=== PATIENT | male | born 1955 | race Caucasian/White ===

== ENCOUNTER 2020-08-10 08:28 | Observation (INO) | payer BC ==
[2020-08-03 15:08] LABS: BASOPHILS % (AUTO) 0.3 % (0-1); EOSINOPHILS % (AUTO) 0.8 % (0-6); LYMPHOCYTES # (AUTO) 0.7 X10'3 (1.1-4.8); LYMPHOCYTES % (AUTO) 12.7 % (21-51); MEAN CORPUSCULAR HEMOGLOBIN 31.7 PG (27.0-31.0); MEAN CORPUSCULAR HGB CONC 33.5 g/dL (33.0-36.5); MEAN CORPUSCULAR VOLUME 94.7 FL (78-98); MEAN PLATELET VOLUME 8.8 FL (7.4-10.4); MONOCYTES # (AUTO) 0.5 X10'3 (0-0.9); MONOCYTES % (AUTO) 8.3 % (2-12); NEUTROPHILS # (AUTO) 4.4 X10'3 (1.8-7.7); NEUTROPHILS % (AUTO) 77.9 % (42-75); PRE OP HEMATOCRIT 45.8 % (42.0-52.0); PRE OP HEMOGLOBIN 15.4 g/dL (14.0-17.9); PRE OP PLATELET COUNT 196 X10'3 (140-440); RED BLOOD COUNT 4.84 X10'6 (4.70-6.10); RED CELL DISTRIBUTION WIDTH 13.9 % (11.5-14.5)
[2020-08-03 15:17] LABS: ALBUMIN 4.2 G/DL (3.4-5.0); ALBUMIN/GLOBULIN RATIO 1.4 (1.1-1.5); ALKALINE PHOSPHATASE 85 IU/L (46-116); BLOOD UREA NITROGEN 23 MG/DL (7-18); BUN/CREATININE RATIO 27.1 (5.4-32.0); CALCIUM 8.9 MG/DL (8.5-10.1); CHLORIDE 103 MMOL/L (99-107); CREATININE 0.85 MG/DL (0.60-1.10); PRE OP ALT 34 U/L (30-65); PRE OP ANION GAP 8 (8-16); PRE OP AST 12 U/L (10-37); PRE OP BILIRUB, TOTAL 0.5 MG/DL (0.0-1.0); PRE OP GLUCOSE 125 MG/DL (70-104); PRE OP POTASSIUM 4.2 MMOL/L (3.4-5.1); PRE OP SODIUM 141 MMOL/L (135-145); TOTAL CARBON DIOXIDE 30.4 MMOL/L (24-32); TOTAL PROTEIN 7.2 G/DL (6.4-8.2); eGFR > 90 ML/MIN
[2020-08-10] VITALS (14 sets, daily range): BP systolic 114–152; BP diastolic 50–86
[~2020-08-10] VITALS: Ht 175.3 cm; Wt 75.0 kg
[~2020-08-10 08:28] MED LIST: ASPI-611 PO; CELE-85 PO; CYCL-1 PO; DILT-94 PO; DOCUMENT DATE & TIME OF BETA-BLOCKER PO ONE; EYE PROMISE RESTORE; FLO0.4C PO; FLUT16SP10 INH; HYDR25TA4 PO; METO-411 PO; MONT10TA97 PO; MULT-1085 PO; OMEP-50 PO; POLY1DRO2 OP; POTA5TAB2 PO; PRAV40TA3 PO; PSYL575P22 PO; TADA10TA14 PO; ceFAZolin 2gm in dextrose, iso 50 ML IV ONE; famotidine 20mg tablet PO ONE; ringers solution, lacted 1,000 ML IV SCH
[2020-08-10 09:54] LABS: PRE OP PARTIAL THROMB. TIME 25 SECONDS (22-32)
[2020-08-10] MEDS ORDERED: fentaNYL /PF 50mcg/ml 5ml ampule ONE (10:11)
[2020-08-10] MEDS ORDERED: midazolam 2 mg/2 ml injection ONE (10:11)
[2020-08-10] MEDS ORDERED: sevoflurane 250ml liquid IH ONE (10:34)
[2020-08-10] MEDS ORDERED: BUPIVAcaine/PF 2.5 mg/ml (0.25%) 30ml vial ONE (10:44)
[2020-08-10] MEDS ORDERED: rocuronium 10mg/ml inj IV ONE (12:57)
[2020-08-10] MEDS ORDERED: LIDOcaine 2% (20mg/ml) 5ml vial ONE (12:57)
[2020-08-10] MEDS ORDERED: dexamethasone sod phosphate 4mg/ml inj. ONE (12:57)
[2020-08-10] MEDS ORDERED: glycopyrrolate 0.2mg/ml inj ONE (12:57)
[2020-08-10] MEDS ORDERED: neostigmine methylsulfate 1 MG/ML 10ml vial ONE (12:57)
[2020-08-10] MEDS ORDERED: propofol inj 20 ML IV ONE (12:57)
[2020-08-10] MEDS ORDERED: ondansetron/PF 4mg/2ml inj ONE (12:57)
[2020-08-10] MEDS ORDERED: proCHLORperazine 10 MG/2 ml inj IV PRN (13:40)
[2020-08-10] MEDS ORDERED: morphine 4 MG/ML inj SYRINge IV PRN (13:40)
[2020-08-10] MEDS ORDERED: ringers solution, lacted 1,000 ML IV SCH (13:40)
[2020-08-10] MEDS ORDERED: meperidine/PF 25mg/ml syringe IV PRN ×2 (13:40)
[2020-08-10] MEDS ORDERED: ondansetron/PF 4mg/2ml inj IV PRN ×2 (13:40→14:20)
[2020-08-10] MEDS ORDERED: ePHEDrine 50MG/ML INJ. ONE (13:55)
[2020-08-10] MEDS ORDERED: acetaminophen 1,000mg/100ml IV 100 ML IV ONE (14:08)
[2020-08-10] MEDS ORDERED: oxybutynin 5mg tablet PO PRN (14:20)
[2020-08-10] MEDS ORDERED: meperidine/PF 25mg/ml syringe ONE (14:20)
[2020-08-10] MEDS ORDERED: HYDROcodone/acetaminophen 5mg/325mg tablet PO PRN (14:20)
[2020-08-10] MEDS ORDERED: acetaminophen 325mg tablet PO PRN (14:20)
--- NOTE | 2020-08-10 14:22 | NUR ---
Received from OR via BED, accompanied by Anesthesiologist DR MALDONADO and report given by Anesthesiologist. PT VERY DROWSY, NO S/S OF DISTRESS/DISCOMFORT. ABDOMEN W/5 LAP SITES W/BANDAIDS CDI, MAY TO BULB SX W/S/S DRAINAGE, INSERTION SITE COVERED W/SMALL [place] DRSPatricia'S CDI. RO CATHETER TO GRAVITY DRAINAGE W/SATISHDY/SHELBI URINE. Addendum: 08/10/20 at 1456 by Starr Garza RN Amended: Links added.
[2020-08-10] MEDS ORDERED: cyclobenzaprine 10mg tablet PO PRN (14:40)
[2020-08-10] MEDS: meperidine/PF 25mg/ml syringe IV PRN ×2 (14:57→15:12)
[2020-08-10] MEDS: morphine 2 MG/ML inj. syringe IV PRN ×2 (15:24→15:48)
--- NOTE | 2020-08-10 16:12 | NUR ---
Report called to receiving nurse. Transferred via BED, 1 GREEN DULLFE BAG AND 1 BAG OF SHOES SENT W/PT TO ROOM 345B, RECEIVING RN AT BEDSIDE TO RECEIVE PT, BLL, CALL LIGHT GIVEN, SIDE RAILS UP X 2, PT ORIENTED TO ROOM AND SAFETY. Special Issues communicated to receiving nurse. YES. Addendum: 08/10/20 at 1635 by Starr Garza RN Amended: Links added.
--- NOTE | 2020-08-10 16:23 | NUR ---
Patient to room 345B from recovery and arrived to room via bed with x2 staff. Patient resting comfortably at time of arrival. VSS, call light in reach, BLL.
[2020-08-10] MEDS: potassium cl 20mEq in 1/2 NS 1,000 ML IV SCH ×2 (18:00→22:20)
[2020-08-10] MEDS: HYDROmorphone 1 mg/ml syringe IV PRN ×2 (18:01→22:36)
--- NOTE | 2020-08-10 18:25 | NUR ---
Problems reprioritized. Patient report given, questions answered & plan of care reviewed with JEFFERY Evans.
--- NOTE | 2020-08-10 18:45 | NUR ---
I have received report from JEFFERY Guy and had the opportunity to ask questions and assume patient care.
[2020-08-10] MEDS: polyvinyl alcohol ophthalmic drops 15ml bottle EACHEYE SCH (20:10)
[2020-08-10] MEDS: HYDROcodone/acetaminophen 5mg/325mg tablet PO PRN (20:19)
--- NOTE | 2020-08-10 20:30 | NUR ---
Patients post op vitals did not record on the vital machine. The last one was due at 1999 and it was charted under the vital sign intervention.
[2020-08-10] MEDS ORDERED: montelukast 10mg tablet PO SCH (21:00)
[2020-08-10] MEDS ORDERED: diltiazem CD 120mg capsule (once-daily) PO SCH (21:00)
[2020-08-11] VITALS: BP 133/63
[2020-08-11] MEDS: HYDROcodone/acetaminophen 5mg/325mg tablet PO PRN ×3 (01:58→12:26)
[2020-08-11] MEDS: potassium cl 20mEq in 1/2 NS 1,000 ML IV SCH (01:59)
[2020-08-11 04:00] VITALS: BP 136/68
[2020-08-11] MEDS: HYDROmorphone 1 mg/ml syringe IV PRN (04:16)
[2020-08-11 05:38] LABS: BASOPHILS % (AUTO) 0.1 % (0-1); EOSINOPHILS % (AUTO) 0 % (0-6); HEMATOCRIT 40.5 % (42.0-52.0); HEMOGLOBIN 13.7 g/dl (14.0-17.9); LYMPHOCYTES # (AUTO) 0.4 X10'3 (1.1-4.8); LYMPHOCYTES % (AUTO) 3.5 % (21-51); MEAN CORPUSCULAR HEMOGLOBIN 31.9 PG (27.0-31.0); MEAN CORPUSCULAR HGB CONC 33.9 g/dL (33.0-36.5); MEAN CORPUSCULAR VOLUME 94.1 FL (78-98); MEAN PLATELET VOLUME 8.1 FL (7.4-10.4); MONOCYTES # (AUTO) 0.9 X10'3 (0-0.9); MONOCYTES % (AUTO) 8.2 % (2-12); NEUTROPHILS # (AUTO) 10.2 X10'3 (1.8-7.7); NEUTROPHILS % (AUTO) 88.2 % (42-75); PLATELET COUNT 202 X10'3 (140-440); RED CELL DISTRIBUTION WIDTH 13.7 % (11.5-14.5); WHITE BLOOD COUNT 11.5 X10'3 (4.5-11.0)
[2020-08-11 05:53] LABS: ALBUMIN 3.2 G/DL (3.4-5.0); ANION GAP 6 (8-16); BLOOD UREA NITROGEN 10 MG/DL (7-18); BUN/CREATININE RATIO 15.6 (5.4-32.0); CALCIUM 7.9 MG/DL (8.5-10.1); CHLORIDE 108 MMOL/L (99-107); CREATININE 0.64 MG/DL (0.60-1.10); GLUCOSE 133 MG/DL (70-104); SODIUM 142 MMOL/L (135-145); TOTAL CARBON DIOXIDE 28.2 MMOL/L (24-32); eGFR > 90 ML/MIN
[2020-08-11 07:00] VITALS: BP 130/59
[2020-08-11] MEDS ORDERED: pantoprazole 40mg Tablet.DR PO SCH (08:00)
[2020-08-11] MEDS ORDERED: fluticasone nasal spray 16GM bottle NS SCH (08:00)
[2020-08-11] MEDS ORDERED: HYDROchlorothiazide 25mg tablet PO SCH (08:00)
[2020-08-11] MEDS ORDERED: metoprolol succinate 25mg (24-HOUR) SR. Tablet PO SCH (08:00)
[2020-08-11] MEDS: polyvinyl alcohol ophthalmic drops 15ml bottle EACHEYE SCH ×2 (08:28→12:26)
[2020-08-11] MEDS ORDERED: HYDR-3972 PO (09:30)
[2020-08-11] MEDS ORDERED: DOCU-148 PO (09:30)
[2020-08-11 11:00] VITALS: BP 132/73
--- NOTE | 2020-08-11 13:17 | NUR ---
Patient hannah cath changed to a leg bag. Education provided on how to change collection bags and how to empty. Patient provided leg bag and large collection bag for night time. Patient also educated on infection control and prevention. Patient also provided an IS and given education on purpose and how to use it. Patient surgical drain removed and replaced with gauze and tape.
--- NOTE | 2020-08-11 14:00 | NUR ---
Patient discharged home via and taken from unit via wheelchair with x1 staff. Patient alert, oriented and in no apparent distress at time of discharge. Patient PIV removed with cannula intact. Patient discharge instructions were discussed again and patent stated an understanding of these instructions. Patient took all belongings with him including collection bags and IS.
[2020-08-12] MEDS ORDERED: docusate sod 250mg capsule PO SCH (08:00)
== END 2020-08-11 14:00 | disposition home or self-care (01) ==
LOC: PAS 08:28 → EDSTATUS 10:15 → SUR 3N 14:17 → UNDOADMOB 14:36
PROVIDERS: ADMIT Urology; ATTEND Urology
DX: C61 Malignant neoplasm of prostate (principal); Z20.828 Contact with and (suspected) exposure to other viral communicable diseases; N40.1 Benign prostatic hyperplasia with lower urinary tract symptoms; I10 Essential (primary) hypertension; M19.90 Unspecified osteoarthritis, unspecified site; I49.9 Cardiac arrhythmia, unspecified; E78.2 Mixed hyperlipidemia; K21.9 Gastro-esophageal reflux disease without esophagitis; J30.81 Allergic rhinitis due to animal (cat) (dog) hair and dander; J30.1 Allergic rhinitis due to pollen; Z79.899 Other long term (current) drug therapy; Z91.048 Other nonmedicinal substance allergy status
CPT/HCPCS: 36415; 55866; 71046; 80048; 80053; 82948; 83036; 85025; 85610; 85730; 86885; 86900; 86901; 87635; 96361; 96374; 96375; 96376; C1758; G0378; J0131; J1100; J1170; J2001; J2175; J2250; J2270; J2405; J2704; J2710; J3010; J3490; J7030; J7120; S2900; A4215; A4338; A4357; A4618; A6449; A7000; J3480

== ENCOUNTER 2022-10-28 08:23 | Day surgery (SDC) | payer BC ==
[2022-10-21 10:51] LABS: BASOPHILS % (AUTO) 0.3 % (0-1); EOSINOPHILS # (AUTO) 0.1 X10'3 (0-0.9); EOSINOPHILS % (AUTO) 1.8 % (0-6); LYMPHOCYTES # (AUTO) 0.7 X10'3 (1.1-4.8); LYMPHOCYTES % (AUTO) 12.5 % (21-51); MEAN CORPUSCULAR HEMOGLOBIN 31.7 PG (27.0-31.0); MEAN CORPUSCULAR HGB CONC 34.3 g/dL (33.0-36.5); MEAN CORPUSCULAR VOLUME 92.6 FL (78-98); MEAN PLATELET VOLUME 7.9 FL (7.4-10.4); MONOCYTES # (AUTO) 0.4 X10'3 (0-0.9); MONOCYTES % (AUTO) 8.1 % (2-12); NEUTROPHILS # (AUTO) 4.2 X10'3 (1.8-7.7); NEUTROPHILS % (AUTO) 77.3 % (42-75); PRE OP HEMATOCRIT 46.4 % (42.0-52.0); PRE OP HEMOGLOBIN 15.9 g/dL (14.0-17.9); PRE OP PLATELET COUNT 205 X10'3 (140-440); RED BLOOD COUNT 5.01 X10'6 (4.70-6.10); RED CELL DISTRIBUTION WIDTH 13.7 % (11.5-14.5)
[2022-10-21 11:07] LABS: ALBUMIN 3.9 G/DL (3.4-5.0); ALBUMIN/GLOBULIN RATIO 1.3 (1.1-1.5); ALKALINE PHOSPHATASE 97 IU/L (46-116); BLOOD UREA NITROGEN 17 MG/DL (7-18); BUN/CREATININE RATIO 26.2 (10.0-20.0); CHLORIDE 105 MMOL/L (99-107); CREATININE 0.65 MG/DL (0.60-1.10); PRE OP ALT 37 U/L (30-65); PRE OP ANION GAP 5 (8-16); PRE OP AST 23 U/L (10-37); PRE OP BILIRUB, TOTAL 0.4 MG/DL (0.0-1.0); PRE OP GLUCOSE 167 MG/DL (70-104); PRE OP POTASSIUM 4.2 MMOL/L (3.4-5.1); PRE OP SODIUM 139 MMOL/L (135-145); TOTAL CARBON DIOXIDE 28.6 MMOL/L (24-32); TOTAL PROTEIN 6.9 G/DL (6.4-8.2); eGFR > 90 ML/MIN
[~2022-10-28] VITALS: Ht 175.3 cm; Wt 77.7 kg
[2022-10-28] VITALS (8 sets, daily range): BP systolic 115–137; BP diastolic 53–73
[~2022-10-28 08:23] MED LIST changes: +ASPI-1071 PO; -ASPI-611 PO; -FLO0.4C PO; +MONT-40 PO; -MONT10TA97 PO; -MULT-1085 PO; -OMEP-50 PO; +OMEP20CA16 PO; -ceFAZolin 2gm in dextrose, iso 50 ML IV ONE; +cefazolin 2gm/D5W 100mL 100 ML IV ONE
[2022-10-28] MEDS ORDERED: BUPIVAcaine/PF 2.5 mg/ml (0.25%) 30ml vial ONE ×2 (09:30→10:04)
[2022-10-28] MEDS ORDERED: LIDOcaine 1% 30ml preserv. free vial ONE (09:30)
[2022-10-28] MEDS ORDERED: fentaNYL/PF 50MCG/1 ML 2ML syringe ONE (09:37)
[2022-10-28] MEDS ORDERED: midazolam 1 mg/ML 2ml injection ONE (09:37)
[2022-10-28] MEDS ORDERED: meperidine/PF 25mg/ml syringe IV PRN ×2 (10:00)
[2022-10-28] MEDS ORDERED: ringers solution, lacted 1,000 ML IV SCH (10:00)
[2022-10-28] MEDS ORDERED: morphine 2 MG/ML inj. syringe IV PRN (10:00)
[2022-10-28] MEDS ORDERED: ondansetron/PF 4mg/2ml inj IV PRN (10:00)
[2022-10-28] MEDS ORDERED: morphine 4 MG/ML inj SYRINge IV PRN (10:00)
[2022-10-28] MEDS ORDERED: proCHLORperazine 10 MG/2 ml inj IV PRN (10:00)
[2022-10-28] MEDS ORDERED: BUPIVACAINE liposomal/PF 13.3 MG/ML vial IM ONE ×2 (10:04→10:22)
[2022-10-28] MEDS ORDERED: LIDOcaine 1% 30ml preserv. free vial IJ ONE (10:09)
[2022-10-28] MEDS ORDERED: BUPIVAcaine/PF 2.5 mg/ml (0.25%) 30ml vial IJ ONE (10:10)
[2022-10-28] MEDS ORDERED: propofol inj 20 ML IV ONE (10:20)
[2022-10-28] MEDS ORDERED: LIDOcaine 2% (20mg/ml) 5ml vial ONE (10:20)
[2022-10-28] MEDS ORDERED: dexamethasone sod phosphate 4mg/ml inj. ONE (10:20)
[2022-10-28] MEDS ORDERED: ondansetron/PF 4mg/2ml inj ONE (10:20)
[2022-10-28] MEDS ORDERED: neostigmine methylsulfate 1 MG/ML 10ml vial ONE (10:20)
[2022-10-28] MEDS ORDERED: glycopyrrolate 0.2mg/ml inj ONE (10:20)
[2022-10-28] MEDS ORDERED: acetaminophen 1,000mg/100ml IV 100 ML IV ONE (10:20)
[2022-10-28] MEDS ORDERED: rocuronium 10mg/ml inj IV ONE (10:20)
--- NOTE | 2022-10-28 11:00 | NUR ---
Received from OR via [facility], accompanied by Anesthesiologist and report given by Anesthesiolgist, DR. MALDONADO. RIGHT WRIST 20G PIV WITH LR RUNNING AT 100ML/HR. VSS. SONOROUS BREATHING, MAINTAINING SATURATIONS WITH 9L ON MASK. ANTERIOR MEDIAL ABDOMEN WITH 4X4 DRESSING AND LEFT LATERAL BANDAIDS X3, ALL CDI. DENIES PAIN.
[2022-10-28] MEDS ORDERED: meperidine/PF 25mg/ml syringe ONE (11:13)
[2022-10-28] MEDS: meperidine/PF 25mg/ml syringe IV PRN ×2 (11:26→11:37)
[2022-10-28] MEDS ORDERED: oxyCODONE/APAP 5-325mg tablet PO PRN (11:30)
--- NOTE | 2022-10-28 12:00 | NUR ---
PATIENT MEETS DISCHARGE CRITERIA. DENIES PAIN POST PERCOCET. ACKERMAN, NO N/V. VSS. DISCHARGE INSTRUCTIONS REVIEWED WITH PATIENT AND , GAGANDEEP. COPIES GIVEN TO THEM. PEROCET PRESCRIPTION READY AT PHARMACY. ALL BELONGINGS ACCOUNTED FOR. GLASSES AND CASE IN PATIENT BELONGING BAG ALONG WITH DISCHARGE INSTRUCTIONS. PATIENT WHEELED OUT TO VEHICLE AND DISCHARGED INTO 'S CARE.
== END 2022-10-28 12:00 | disposition home or self-care (01) ==
LOC: PAS 08:23
PROVIDERS: ATTEND Surgery
DX: K43.2 Incisional hernia without obstruction or gangrene (principal); K42.9 Umbilical hernia without obstruction or gangrene; Z79.899 Other long term (current) drug therapy; I10 Essential (primary) hypertension; E78.5 Hyperlipidemia, unspecified; K21.9 Gastro-esophageal reflux disease without esophagitis; M19.90 Unspecified osteoarthritis, unspecified site; Z98.890 Other specified postprocedural states; G89.18 Other acute postprocedural pain
CPT/HCPCS: 36415; 49591; 64488; 80053; 82948; 85025; 93005; C1781; C9290; J0131; J0690; J1100; J2175; J2250; J2405; J2704; J2710; J3010; J3490; J7030; J7120; S2900; Z7506; Z7508; Z7512; A4215; A4618